=== PATIENT | female | born 1960 | race Hispanic/Latino ===

== ENCOUNTER 2019-01-31 18:33 | Emergency (ER) | payer BC ==
[~2019-01-31] VITALS: Ht 157.5 cm; Wt 75.7 kg
--- OUTSIDE RECORDS SUMMARY | 2019-01-31 18:37 | XMS REPORT | Clinical Summary ---
Author Author [facility] Address Unknown Phone Unavailable Care Team Providers Care [employer] Back Feeder Name Role Phone Asked, No Pcp PCP Unavailable Allergies Not on File Medications Not on file Active Problems Not on file Encounters Care Team Description Date Type Specialty Blair Izquierdo MD 01/27/2019 Occupational Occupational Health Health after 01/30/2018 Social History Date Tobacco Use Types Packs/Day Years Used Never Assessed Sex Assigned at Date Recorded Not on file Industry Job Start Date Occupation Not on file Not on file Not on file Travel End Travel History Travel Start No recent travel history available. Last Filed Vital Signs Time Taken Vital Sign Reading 01/27/2019 1:30 PM CDT Blood Pressure 120/60 01/27/2019 1:30 PM CDT Pulse 60 01/27/2019 1:30 PM CDT Temperature 35.9 C (96.6 F) 01/27/2019 1:30 PM CDT Respiratory Rate 18 - Oxygen Saturation - - Inhaled Oxygen - Concentration 01/27/2019 1:30 PM CDT Weight 78.7 kg (173 lb 6.4 oz) 01/27/2019 1:30 PM CDT Height 154.9 cm (5' 1") 01/27/2019 1:30 PM CDT Body Mass Index 32.76 Plan of Treatment Care Team Description Date Type Specialty Blair Izquierdo MD [address] [place] [address] [place] [id number] 02/01/2019 Occupational Occupational Health Health Health Maintenance Due Date Last Done Comments CERVICAL CANCER SCREENING 1982 BREAST CANCER SCREENING 2011 COLON CANCER SCREENING 2011 SHINGLES VACCINES (#1) 2011 INFLUENZA VACCINE 05/27/2019 Results Not on fileafter 01/30/2018 Advance Directives Patient has advance care planning documents on file. For more information, karis torres contact: Nahum James [address] [place] [address]
--- OUTSIDE RECORDS SUMMARY | 2019-01-31 18:37 | XMS REPORT ---
Author Author [facility] Address Unknown Phone Unavailable Care Team Providers Care Tool Repair Technician Name Role Phone Unavailable Unavailable Problems This patient has no known problems. Allergies, Adverse Reactions, Alerts This patient has no known allergies or adverse reactions. Medications This patient has no known medications. Encounters Start Date/Time End Date/Time Encounter Type Admission Type Attending [facility] Facility Care Department Encounter ID 2018-02-10 11:09:12 2018-02-10 11:09:[address] [facility] [id number] 2018-02-10 09:00:24 2018-02-10 09:00:[address] [facility] [id number] 2017-11-20 08:31:14 2017-11-20 08:31:[address] [facility] [id number] 2017-11-13 00:00:00 2017-11-13 00:00:[address] [facility] [id number] 2017-10-29 08:26:13 2017-10-29 08:26:[address] [facility] [id number] 2017-08-22 09:59:42 2017-08-22 09:59:[address] [facility] [id number] 2017-08-01 00:00:00 2017-08-01 00:00:[address] [facility] [id number] 2017-07-28 00:00:00 2017-07-28 00:00:[address] [facility] [id number] 2017-07-25 00:00:00 2017-07-25 00:00:[address] [facility] [id number] 2017-07-25 00:00:00 2017-07-25 00:00:[address] [facility] [id number] 2017-07-11 00:00:00 2017-07-11 00:00:[address] [facility] [id number] 2017-07-02 08:47:08 2017-07-02 08:47:[address] [facility] [id number] 2017-06-24 00:00:00 2017-06-24 00:00:[address] [facility] [id number] 2017-06-09 00:00:00 2017-06-09 00:00:[address] [facility] [id number] 2017-06-06 09:46:47 2017-06-06 09:46:[address] [facility] [id number]
--- NOTE | 2019-01-31 19:45 | NUR ---
TO ROOM WITH MD. PT STATES THAT WOUND OPENED AFTER SNEEZING YESTERDAY. MD INFOMRED PATIENT THAT NEEDED TO FOLLOW-UP WITH PASTIC SURGEON THAT PERFORMED SURGERY. FOLLOW-UP INSTRUCTIONS PROVIDED IN [place].
== END 2019-01-31 19:58 | disposition home or self-care (01) ==
LOC: ER 18:33
DX: T81.31XA Disruption of external operation (surgical) wound, not elsewhere classified, initial encounter (principal); E78.00 Pure hypercholesterolemia, unspecified
CPT/HCPCS: 99282